=== PATIENT | male | born 1995 | race Hispanic/Latino ===

== ENCOUNTER → 2019-09-18 | Outpatient (CLI) | payer BC | LOC: YCFC.O 15:29 | PROVIDERS: ATTEND Nurse Practitioner | DX: Z03.818 Encounter for observation for suspected exposure to other biological agents ruled out (principal); Z20.828 Contact with and (suspected) exposure to other viral communicable diseases ==

== ENCOUNTER → 2019-09-26 | Outpatient (CLI) | payer BC | LOC: YCFC.O 11:06 | PROVIDERS: ATTEND Family Medicine | DX: U07.1 COVID-19 (principal); Z11.59 Encounter for screening for other viral diseases ==